=== PATIENT | female | born 1985 | race African-American/Black ===

== ENCOUNTER 2020-01-25 10:40 | Emergency (ER) | payer BC, OTHER ==
[~2020-01-25] VITALS: Ht 172.7 cm; Wt 89.0 kg
[2020-01-25] MEDS ORDERED: IBUPROFEN 600MG TABLET PO ONE (11:15)
[2020-01-25] MEDS ORDERED: TETANUS, DIPHTHERIA, PERTUSSIS VAC/PF 0.5ML (>7YR OLD) IM ONE (11:30)
[2020-01-25] MEDS ORDERED: BACITRACIN ZINC OINT UDPKT TOP ONE (11:30)
[2020-01-25 11:59] VITALS: BP 111/64
== END 2020-01-25 12:52 | disposition home or self-care (01) ==
LOC: ER 10:40
DX: T24.111A Burn of first degree of right thigh, initial encounter (principal); X10.2XXA Contact with fats and cooking oils, initial encounter; Y93.G3 Activity, cooking and baking; Y92.9 Unspecified place or not applicable; Z98.890 Other specified postprocedural states
CPT/HCPCS: 90471; 90715; 99283